=== PATIENT | male | born 1950 | race Caucasian/White ===

== ENCOUNTER 2021-12-09 12:29 | Outpatient (CLI) | payer MEDICARE, BC | END 2021-12-09 23:59 | disposition home or self-care (01) | LOC: VAS 12:29 | PROVIDERS: ATTEND Family Medicine | DX: M79.604 Pain in right leg (principal) | CPT/HCPCS: 93971 ==

== ENCOUNTER 2023-03-27 08:34 | Outpatient (CLI) | payer MEDICARE, BC | END 2023-03-27 23:59 | disposition home or self-care (01) | LOC: RAD 08:34 | PROVIDERS: ATTEND Family Medicine | DX: M51.36 Other intervertebral disc degeneration, lumbar region (principal); M48.061 Spinal stenosis, lumbar region without neurogenic claudication; M51.26 Other intervertebral disc displacement, lumbar region; S39.012S Strain of muscle, fascia and tendon of lower back, sequela; R20.2 Paresthesia of skin | CPT/HCPCS: 72148 ==